=== PATIENT | male | born 1985 | race Caucasian/White ===

== ENCOUNTER 2017-11-08 00:17 | Outpatient (CLI) | payer MEDICAID | END 2017-11-08 23:59 | disposition home or self-care (01) | LOC: DIABETIC 00:17 | PROVIDERS: ATTEND Surgery | DX: Z01.818 Encounter for other preprocedural examination (principal); E66.01 Morbid (severe) obesity due to excess calories; G47.33 Obstructive sleep apnea (adult) (pediatric); K21.9 Gastro-esophageal reflux disease without esophagitis | CPT/HCPCS: 97802 ==

== ENCOUNTER 2019-08-13 10:55 | Day surgery (SDC) | payer MEDICAID ==
[2019-08-13] MEDS ORDERED: LIDOcaine 2% 5ml jelly ONE (12:13)
== END 2019-08-13 12:41 | disposition home or self-care (01) ==
LOC: WOUND CARE 10:55
PROVIDERS: ATTEND Nurse Practitioner Family
DX: S81.801A Unspecified open wound, right lower leg, initial encounter (principal); L03.115 Cellulitis of right lower limb; E66.01 Morbid (severe) obesity due to excess calories; I89.0 Lymphedema, not elsewhere classified; K21.9 Gastro-esophageal reflux disease without esophagitis; G47.33 Obstructive sleep apnea (adult) (pediatric); F32.9 Major depressive disorder, single episode, unspecified; Z68.45 Body mass index [BMI] 70 or greater, adult; X58.XXXA Exposure to other specified factors, initial encounter; Y93.89 Activity, other specified; Y92.89 Other specified places as the place of occurrence of the external cause; Y99.8 Other external cause status
CPT/HCPCS: 97597

== ENCOUNTER 2019-09-14 13:42 | Outpatient (CLI) | payer MEDICAID ==
[2019-09-14] MEDS ORDERED: LIDOcaine 2% 5ml jelly ONE (14:20)
== END 2019-09-14 15:11 | disposition home or self-care (01) ==
LOC: WOUND CARE 13:42
PROVIDERS: ATTEND Nurse Practitioner
DX: L97.811 Non-pressure chronic ulcer of other part of right lower leg limited to breakdown of skin (principal); L03.115 Cellulitis of right lower limb; I87.2 Venous insufficiency (chronic) (peripheral); Q82.0 Hereditary lymphedema; E66.01 Morbid (severe) obesity due to excess calories; K21.9 Gastro-esophageal reflux disease without esophagitis; G47.33 Obstructive sleep apnea (adult) (pediatric); F32.9 Major depressive disorder, single episode, unspecified; Z68.45 Body mass index [BMI] 70 or greater, adult
CPT/HCPCS: G0463

== ENCOUNTER 2019-09-25 13:16 | Day surgery (SDC) | payer MEDICAID | END 2019-09-25 14:15 | disposition home or self-care (01) | LOC: WOUND CARE 13:16 | PROVIDERS: ATTEND Nurse Practitioner Family | DX: L97.811 Non-pressure chronic ulcer of other part of right lower leg limited to breakdown of skin (principal); L03.115 Cellulitis of right lower limb; I87.2 Venous insufficiency (chronic) (peripheral); Q82.0 Hereditary lymphedema; E66.01 Morbid (severe) obesity due to excess calories; K21.9 Gastro-esophageal reflux disease without esophagitis; G47.33 Obstructive sleep apnea (adult) (pediatric); F32.9 Major depressive disorder, single episode, unspecified; Z68.45 Body mass index [BMI] 70 or greater, adult | CPT/HCPCS: 36415; 97597 ==

== ENCOUNTER 2019-10-23 11:37 | Day surgery (SDC) | payer MEDICAID | END 2019-10-23 12:30 | disposition home or self-care (01) | LOC: WOUND CARE 11:37 | PROVIDERS: ATTEND Nurse Practitioner Family | DX: L97.811 Non-pressure chronic ulcer of other part of right lower leg limited to breakdown of skin (principal); L03.115 Cellulitis of right lower limb; I87.2 Venous insufficiency (chronic) (peripheral); Q82.0 Hereditary lymphedema; E66.01 Morbid (severe) obesity due to excess calories; K21.9 Gastro-esophageal reflux disease without esophagitis; G47.33 Obstructive sleep apnea (adult) (pediatric); F32.9 Major depressive disorder, single episode, unspecified; Z68.45 Body mass index [BMI] 70 or greater, adult | CPT/HCPCS: 97597 ==

== ENCOUNTER 2019-11-07 11:10 | Day surgery (SDC) | payer MEDICAID ==
[2019-11-07] MEDS ORDERED: LIDOcaine 2% 5ml jelly ONE (11:47)
== END 2019-11-07 12:28 | disposition home or self-care (01) ==
LOC: WOUND CARE 11:10
PROVIDERS: ATTEND Nurse Practitioner
DX: L97.811 Non-pressure chronic ulcer of other part of right lower leg limited to breakdown of skin (principal); L03.115 Cellulitis of right lower limb; I87.2 Venous insufficiency (chronic) (peripheral); Q82.0 Hereditary lymphedema; E66.01 Morbid (severe) obesity due to excess calories; K21.9 Gastro-esophageal reflux disease without esophagitis; G47.33 Obstructive sleep apnea (adult) (pediatric); F32.9 Major depressive disorder, single episode, unspecified; Z68.45 Body mass index [BMI] 70 or greater, adult
CPT/HCPCS: 97597

== ENCOUNTER 2019-12-25 13:37 | Day surgery (SDC) | payer MEDICAID ==
[2019-12-25] MEDS ORDERED: LIDOcaine 2% 5ml jelly ONE (14:24)
== END 2019-12-25 14:37 | disposition home or self-care (01) ==
LOC: WOUND CARE 13:37
PROVIDERS: ATTEND Nurse Practitioner
DX: L97.811 Non-pressure chronic ulcer of other part of right lower leg limited to breakdown of skin (principal); L03.115 Cellulitis of right lower limb; I87.2 Venous insufficiency (chronic) (peripheral); Q82.0 Hereditary lymphedema; E66.01 Morbid (severe) obesity due to excess calories; K21.9 Gastro-esophageal reflux disease without esophagitis; G47.33 Obstructive sleep apnea (adult) (pediatric); F32.9 Major depressive disorder, single episode, unspecified; Z68.45 Body mass index [BMI] 70 or greater, adult
CPT/HCPCS: 97597

== ENCOUNTER 2020-01-29 14:00 | Outpatient (CLI) | payer MEDICAID | END 2020-01-29 14:24 | disposition home or self-care (01) | LOC: WOUND CARE 14:00 | PROVIDERS: ATTEND Nurse Practitioner | DX: L97.811 Non-pressure chronic ulcer of other part of right lower leg limited to breakdown of skin (principal); I87.2 Venous insufficiency (chronic) (peripheral); Q82.0 Hereditary lymphedema; E66.01 Morbid (severe) obesity due to excess calories; K21.9 Gastro-esophageal reflux disease without esophagitis; G47.33 Obstructive sleep apnea (adult) (pediatric); F32.9 Major depressive disorder, single episode, unspecified; Z68.45 Body mass index [BMI] 70 or greater, adult | CPT/HCPCS: G0463 ==